=== PATIENT | female | born 1995 | race African-American/Black ===

== ENCOUNTER 2018-06-24 15:09 | Emergency (ER) | END 2018-06-24 17:51 | disposition home or self-care (01) ==

== ENCOUNTER 2018-07-16 19:17 | Emergency (ER) | payer OTHER ==
[~2018-07-16] VITALS: Ht 172.7 cm; Wt 130.4 kg
[~2018-07-16 19:17] MED LIST: LORA1TAB PO
[2018-07-16 19:20] VITALS: Ht 172.7 cm; Wt 130.4 kg
--- NOTE | 2018-07-16 20:52 | ERD ---
ER Documentation Chief Complaint Chief Complaint ANXIETY; WAS SEEN COUPLE WEEKS AGO FOR SAME ISSUE HPI This is a 23-year-old female who stated that she is a transgender. She also stated that she was born as a female. Patient complains of left-sided chest pain and chest pressure at rest. Stated that this happened 3 weeks ago and came here to the emergency department. Was diagnosed with anxiety. No history of chest x-ray, blood works. LMP: Denies headache, head injury, loss of consciousness, dizziness, neck pain, neck stiffness, throat pain, difficulty swallowing, difficulty breathing lying flat, shoulder pain, back pain, abdominal pain, nausea, vomiting, constipation, diarrhea, urinary symptoms, or possibility being , loss of bowel and bladder control, trauma, injury, falls, difficulty walking due to pain, numbness or tingling sensation, calf pain, recent travel, recent major surgery in the last 3 weeks, calf pain, recent long travel, recent exposure to any illness, recent antibiotic use in the last 3 months, fever, chills, seizures. Past medical history: Surgical history: Social: Denies smoking, use of alcoholic beverages, use of illegal drugs. ROS All systems reviewed and are negative except as per history of present illness. Medications Home Meds Active Scripts Hydroxyzine Hcl* (Hydroxyzine Hcl*) 50 Mg Tablet, 50 MG PO Q6H PRN for ANXIETY, #30 TAB Prov:PASILABAN,BRANDOAR F 07/16/18 Ibuprofen* (Motrin*) 800 Mg Tab, 800 MG PO Q6H PRN for PAIN AND OR ELEVATED TEMP, #30 TAB Prov:PASILABAN,KLAR F 07/16/18 Lorazepam* (Lorazepam*) 1 Mg Tablet, 1 MG PO Q8H PRN for ANXIETY, #7 TAB Prov:ROMEO BRIONES PA-C 06/24/18 Allergies Allergies: Coded Allergies: No Known Allergy (Unverified , 06/24/18) PMhx/Soc Medical and Surgical Hx: pt denies Surgical Hx Hx Miscellaneous Medical Probl: Yes (Anxiety) Hx Alcohol Use: No Hx Substance Use: No Hx Tobacco Use: No Smoking Status: Never smoker Physical Exam Vitals Vital Signs Date Temp Pulse Resp B/P (MAP) Pulse Ox O2 O2 Flow FiO2 Time Delivery Rate 07/16/18 98.6 51 18 130/75 100 Room Air 22:10 (93) 07/16/18 97.3 87 19 143/90 97 19:20 (107) Physical Exam Const: No acute distress Head: Atraumatic Eyes: Normal Conjunctiva ENT: Normal External Ears, Nose and Mouth. Neck: Full range of motion. No meningismus. Resp: Clear to auscultation bilaterally Cardio: Regular rate and rhythm, no murmurs Abd: Soft, non tender, non distended. Normal bowel sounds Skin: No petechiae or rashes. Examined with female rules examiner. No vesicular lesions. Back: No midline or flank tenderness Ext: No cyanosis, or edema Neur: Awake and alert. No neurological deficits. Psych: Normal Mood and Affect Result Diagram: 07/16/18210507/16/182105 Results 24 hrs Laboratory Tests Test 07/16/18 21:06 White Blood Count 7.7 10^3/ul Red Blood Count 4.90 10^6/ul Hemoglobin 14.5 g/dl Hematocrit 42.2 % Mean Corpuscular Volume 86.1 fl Mean Corpuscular Hemoglobin 29.6 pg Mean Corpuscular Hemoglobin Concent 34.4 g/dl Red Cell Distribution Width 12.2 % Platelet Count 313 10^3/UL Mean Platelet Volume 10.2 fl Immature Granulocytes % 0.300 % Neutrophils % 52.7 % Lymphocytes % 37.1 % Monocytes % 7.4 % Eosinophils % 2.0 % Basophils % 0.5 % Nucleated Red Blood Cells % 0.0 /100WBC Immature Granulocytes # 0.020 10^3/ul Neutrophils # 4.0 10^3/ul Lymphocytes # 2.8 10^3/ul Monocytes # 0.6 10^3/ul Eosinophils # 0.2 10^3/ul Basophils # 0.0 10^3/ul Nucleated Red Blood Cells # 0.0 10^3/ul Prothrombin Time 13.0 Sec Prothrombin Time Ratio 1.0 INR International Normalized Ratio 0.97 Activated Partial Thromboplast Time 32.6 Sec Sodium Level 142 mmol/L Potassium Level 4.1 mmol/L Chloride Level 102 mmol/L Carbon Dioxide Level 29 mmol/L Anion Gap 11 Blood Urea Nitrogen 6 mg/dl Creatinine 0.72 mg/dl Est Glomerular Filtrat Rate mL/min > 60 mL/min Glucose Level 90 mg/dl Calcium Level 9.3 mg/dl Total Bilirubin 0.6 mg/dl Direct Bilirubin 0.00 mg/dl Indirect Bilirubin 0.6 mg/dl Aspartate Amino Transf (AST/SGOT) 29 IU/L Alanine Aminotransferase (ALT/SGPT) 19 IU/L Alkaline Phosphatase 71 IU/L Troponin I < 0.012 ng/ml Total Protein 8.6 g/dl Albumin 4.5 g/dl Globulin 4.10 g/dl Albumin/Globulin Ratio 1.09 Current Medications Medications Dose Sig/Suri Start Time Status Last (Trade) Ordered Route PRN Stop Time Admin Dose Reason Admin Aspirin 325 mg ONCE ONCE 07/16/18 DC 07/16/18 (Aspirin) PO 21:00 21:03 07/16/18 21:01 Lorazepam 1 mg ONCE ONCE 07/16/18 DC 07/16/18 (Ativan) PO 21: 21:03 07/16/18 21:01 Procedures/MDM Diagnostic tests: EKG: Normal sinus rhythm with a ventricular rate of 72 bpm. Possible left atrial enlargement. Chest x-ray: No acute disease. Blood works: Reviewed. Treatment: Aspirin p.o. Ativan p.o. Re-evaluation: Denies pain. Differential diagnosis I have low suspicion for acute myocardial infarct, coronary syndrome, pneumothorax, hemothorax, pulmonary embolism, pneumonia, sepsis. Final diagnosis: Anxiety. Chest pain. Prescription: Motrin. Hydroxyzine. Follow-up with PCP in the next 24-48 hours. Come back here in the emergency department for any new symptoms or any worsening symptoms. All questions and concerns were answered. Patient and family members verbalized understanding and agreed with plan of care. Hemodynamically stable on discharge. Departure Diagnosis: Primary Impression: Anxiety Additional Impression: Anxiety attack Condition: Stable Additional Instructions: Follow-up with PCP in the next 24-48 hours. Come back here in the emergency department for any new symptoms or any worsening symptoms. JASON HUNG Jul 16, 2018 20:52
[2018-07-16] MEDS ORDERED: LORAZEPAM 1 MG TAB PO ONE (21:00)
[2018-07-16] MEDS ORDERED: ASPIRIN 325 MG TAB PO ONE (21:00)
[2018-07-16] MEDS ORDERED: IBUP800T48 PO (22:02)
[2018-07-16] MEDS ORDERED: HYDR50TA15 PO (22:02)
[2018-07-16 22:10] VITALS: BP 130/75; PULSE 51; RESP 18
== END 2018-07-16 22:11 | disposition home or self-care (01) ==
LOC: FTE 19:17
DX: F41.9 Anxiety disorder, unspecified (principal); R07.9 Chest pain, unspecified
CPT/HCPCS: 36415; 71046; 80053; 84484; 85025; 85610; 85730; 93005; Z7502; Z7610